=== PATIENT | male | born 1970 | race African-American/Black ===

== ENCOUNTER 2021-06-02 10:46 | Emergency (ER) | payer SELFPAY ==
[~2021-06-02] VITALS: Ht 175.3 cm; Wt 76.3 kg
[2021-06-02 10:46] VITALS: BP 151/99
[2021-06-02] MEDS ORDERED: IOHEXOL 300 MG/ML 75 ML VIAL. IV ONE (11:15)
[2021-06-02] MEDS ORDERED: CONTRAST GIVEN. MC PRN (11:15)
[2021-06-02] MEDS ORDERED: KETOROLAC 15 MG/ML VIAL. IVP ONE (11:15)
--- NOTE | 2021-06-02 12:30 | PHYS DOC ---
Past History Past Surgical History: No Surgical History (ERA MATUTE) Alcohol Use: Occasionally Social History Narrative: IV DRUG USE (ERA MATUTE) General Adult EDM: Chief Complaint: ABSCESS HPI: HPI: Patient is a 50 year old male who presents with a right-sided neck mass. Patient states it started as a small bump about a week ago, but is gotten bigger since onset. Patient states he was using ibuprofen for pain control, which was helping until last night. 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 Patient reports chills for the past 2 nights, but has not recorded in objective fever. There has been no discharge or bleeding from the mass. Patient denies joint pain, sore throat, ear pain. Patient has no other complaints at this time. (ERA MATUTE) Review of Systems: Review of Systems: Constitutional: See HPI Eyes: Denies change in visual acuity HENT: See HPI Respiratory: Denies cough or shortness of breath Cardiovascular: Denies chest pain or edema Musculoskeletal: Denies back pain or joint pain Integument: See HPI Neurologic: Denies headache, focal weakness or sensory changes (ERA MATUTE) Current Medications: Current Meds: Current Medications Medications (Trade) Dose Ordered Sig/Alberto Start Time Stop Time Status Last Admin Dose Admin Info (Do NOT chart on this entry -- for MONITORING) 1 each PRN DAILY PRN 06/02/21 11:15 06/04/21 11:14 Iohexol (Omnipaque 300 Mg/ml) 75 ml 1X ONCE 06/02/21 11:15 06/02/21 11:16 DC Ketorolac Tromethamine (Toradol 15mg Vial) 15 mg 1X ONCE 06/02/21 11:15 06/02/21 11:16 DC 06/02/21 12:25 15 MG (ERA MATUTE) Allergies: Allergies: Allergies Coded Allergies Type Severity Reaction Last Updated Verified No Known Drug Allergies 06/02/21 No (ERA MATUTE) Physical Exam: PE: Constitutional: Well developed, well nourished, no acute distress, non-toxic appearance. HENT: Normocephalic, atraumatic, bilateral external ears normal, oropharynx moist, no oral exudates, nose normal. Eyes: Conjunctiva normal, no discharge. Neck: 5 x 8 cm erythematous, firm mass noted on the right side inferior neck, range of motion to the right limited secondary to pain and swelling, no bony tenderness, no step-offs, no stridor. Cardiovascular: Heart rate regular rhythm, no murmur. Lungs & Thorax: Bilateral breath sounds clear to auscultation. Skin: Mass on neck as noted above, skin otherwise warm, dry, no erythema, no rash. Back: No tenderness, no CVA tenderness. Extremities: No tenderness, no cyanosis, no clubbing, ROM intact, no edema. Neurologic: Alert and oriented x3, normal motor function, normal sensory function, no focal deficits noted. (ERA MATUTE) Current Patient Data: Vital Signs: Vital Signs Date Time Temp Pulse Resp B/P (MAP) Pulse Ox O2 Delivery O2 Flow Rate FiO2 06/02/21 10:46 78 151/99 (116) 99 06/02/21 10:46 18 Room Air (ERA MATUTE) Radiology/Procedures: Radiology/Procedures: PROCEDURE: CT SOFT TISSUE NECK [facility] Compliance Statement: One or more of the following individualized dose reduction techniques were utilized for this examination: 1. Automated exposure control 2. Adjustment of the mA and/or kV according to patient size 3. Use of iterative reconstruction technique CT NECK SOFT TISSUE WITHOUT CONTRAST 06/02/2021 11:05 AM Indication: Right neck mass. COMPARISON: None available. TECHNIQUE: Multiple axial CT images of the neck were obtained without intravenous contrast. Coronal and sagittal reformats are provided. FINDINGS: No suspicious abnormality identified involving the visualized portions of the brain parenchyma and posterior fossa. The skull base is normal. The visualized paranasal sinuses are well aerated. Orbital contents appear normal. The sella turcica and cavernous sinus regions appear intact. The mastoid air cells are well aerated. The fossa of Rosenmuller is normal. Nasopharynx is normal in appearance. The parotid space contents and helmet coverer space contents appear intact. The parapharyngeal spaces are normal. The submandibular contents appear intact. Oral cavity, floor of mouth and sublingual space appear normal.. Oropharynx is normal in appearance. The epiglottis, aryepiglottic folds, and piriform sinuses are normal. The vallecula appears normal. The larynx and trachea are normal. The thyroid gland is normal in appearance. The carotid space contents are normal. In the right supraclavicular space there is a cystic mass measuring 4.8 x 4.1 cm. There is overlying skin thickening and subcutaneous edema. There are additional subcentimeter bilateral cervical lymph nodes measuring up to 8 mm in the right (series 2, image 32 and 5 mm in the left (series 2, image 34). The perivertebral space contents are normal. The supraclavicular regions appear intact. The visualized mediastinum is normal. The visualized lungs appear clear. Moderate cervical spondylosis. IMPRESSION: Right supraclavicular cystic mass measures 4.8 x 4.1 cm. There is adjacent inflammation. Differential considerations would include necrotic lymph node versus abscess. Evaluation limited without intravenous contrast. Further evaluation with targeted ultrasound could be of benefit. Correlate with any localized infection. Subcentimeter right level 2 cervical lymph node present. This is likely reactive. Electronically signed by: Kendra Chester MD (06/02/2021 12:57 PM) [id number] (ERA MATUTE) Heart Score: C/O Chest Pain: No (ERA MATUTE) Course & Med Decision Making: Course & Med Decision Making Pertinent Labs and Imaging studies reviewed. (See chart for details) Patient given IM ketorolac, as a line cannot be obtained. The soft tissue neck CT was originally ordered with IV contrast, however secondary to being unable to place IV line, scan was performed without. As the mass does not have a head or any palpable fluctuance, I do not believe I&D is appropriate at this time. I have asked Dr. Johnson to also examine the mass to assist in determining whether I&D is appropriate or not. On reevaluation after ketorolac IM, patient states his pain has decreased from 9/10 down to 6/10. Dr. Johnson did an ultrasound assisted exam of the mass. A well-circumscribed fluid collection is noted in the central mass. I&D will be performed and cultures will be obtained. Patient was given 1 g Rocephin in the department. Patient will be discharged home with prescriptions for tramadol, Zofran, and doxycycline. Patient should remove the packing tomorrow. If it is still draining at that point, patient will be instructed to replace the packing every 1 to 2 days until draining stops. (ERA MATUTE) Dragon Disclaimer: Dragon Disclaimer: This electronic medical record was generated, in whole or in part, using a voice recognition dictation system. (ERA MATUTE) Incision and Drainage Indication: Abscess with surrounding cellulitis Procedure: The patient was positioned appropriately and the skin over the incision site was cleansed with Betadine swabs. Local anesthesia was 4 mL 2% lidocaine plain. An incision was then made over the center of the mass on the right anterior cervical area and more than 6 cc material was expressed. Loculations were deep and superior to the incision site. The drainage cavity was then packed with packing gauze. The patients tetanus status was not up-to-date, he was given his tetanus vaccine in the department. The patient tolerated the procedure well, but did experience pain. Complications: Abscess was deep, so local anesthetic likely was not as efficient as it would be with a more superficial abscess. (ERA MATUTE) Attending Co-Sign The patient was seen and interviewed as well as examined at the bedside. The chart was reviewed. The case was discussed. Agree with the plan of care. (TAMARA JOHNSON DO) Departure Departure: Disposition: HOME / SELF CARE / HOMELESS Condition: STABLE Referrals: PCP,LE (PCP) Patient Instructions: Incision and Drainage, Care After Additional Instructions: Your abscess was incised and drained in the department today. We obtained a culture to ensure appropriate antibiotic treatment. The wound was packed with packing gauze. You should remove this in the shower tomorrow, and repack it if it is still draining. You should continue to replace the gauze every 1 to 2 days so long as the wound is draining. After that time, you may allow it to close and heal on its own. Please take the full course of antibiotics you are prescribed. You were also given tramadol for pain management, along with Zofran to treat side effect of nausea that you have experienced in the past. Please return to the emergency department if you develop a fever or the infection does not improve. Scripts Ondansetron (ONDANSETRON ODT) 4 Mg Tab.rapdis 1 TAB PO PRN Q6HRS for nausea for 3 Days, #12 TAB Let 1 tablet dissolve in your mouth every 6 hours as needed for nausea. Prov: ERA MATUTE 06/02/21 Tramadol Hcl (TRAMADOL HCL) 50 Mg Tablet 50 MG PO PRN Q6HRS PRN for PAIN for 3 Days, #12 TAB Take 1 tablet by mouth every 6 hours as needed for pain. Prov: ERA MATUTE 06/02/21 Doxycycline Hyclate (DOXYCYCLINE HYCLATE) 100 Mg Capsule 1 CAP PO BID for abscess for 10 Days, #20 CAP Take 1 capsule by mouth twice a day for 10 days. Please take full course of antibiotics unless otherwise instructed. Prov: ERA MATUTE 06/02/21 ERA MATUTE Jun 02, 2021 12:30 TAMARA JOHNSON DO Jun 03, 2021 06:16
--- NOTE | 2021-06-02 12:59 | RAD ---
[employer]RS Compliance Statement: One or more of the following individualized dose reduction techniques were utilized for this examinat ion: 1. Automated exposure control 2. Adjustment of the mA and/or kV according to patient size 3. Use of iterative reconstruction technique CT NECK SOFT TISSUE WITHOUT CONTRAST 06/02/2021 11:05 AM Indication: Right neck mass. COMPARISON: None available. TECHNIQUE: Multiple axial CT images of the neck were obtained without intravenous contrast. Coronal a nd sagittal reformats are provided. FINDINGS: No suspicious abnormality identified involving the visualized portions of the brain parenchyma and po sterior fossa. The skull base is normal. The visualized paranasal sinuses are well aerated. Orbital c ontents appear normal. The sella turcica and cavernous sinus regions appear intact. The mastoid air c ells are well aerated. The fossa of Rosenmuller is normal. Nasopharynx is normal in appearance. The parotid space contents a nd washery engineer space contents appear intact. The parapharyngeal spaces are normal. The submandibular contents appear intact. Oral cavity, floor of mouth and sublingual space appear normal.. Oropharynx is normal in appearance. The epiglottis, aryepiglottic folds, and piriform sinuses are nor mal. The vallecula appears normal. The larynx and trachea are normal. The thyroid gland is normal in appearance. The carotid space contents are normal. In the right supraclavicular space there is a cystic mass elda uring 4.8 x 4.1 cm. There is overlying skin thickening and subcutaneous edema. There are additional s ubcentimeter bilateral cervical lymph nodes measuring up to 8 mm in the right (series 2, image 32 and 5 mm in the left (series 2, image 34). The perivertebral space contents are normal. The supraclavicular regions appear intact. The visualiz ed mediastinum is normal. The visualized lungs appear clear. Moderate cervical spondylosis. IMPRESSION: Right supraclavicular cystic mass measures 4.8 x 4.1 cm. There is adjacent inflammation. Differential considerations would include necrotic lymph node versus abscess. Evaluation limited without intraven ous contrast. Further evaluation with targeted ultrasound could be of benefit. Correlate with any loc alized infection. Subcentimeter right level 2 cervical lymph node present. This is likely reactive. Electronically signed by: Kendra Chester MD (06/02/2021 12:57 PM) [id number]
[2021-06-02] MEDS ORDERED: traMADol 50 MG TABLET PO ONE (14:30)
[2021-06-02] MEDS ORDERED: LIDOCAINE 2% 20 ML VIAL. IJ ONE (14:30)
[2021-06-02] MEDS ORDERED: TRAM50TA PO (15:04)
[2021-06-02] MEDS ORDERED: ONDA4TAB12 PO (15:04)
[2021-06-02] MEDS ORDERED: DOXY100C3 PO (15:04)
[2021-06-02] MEDS ORDERED: cefTRIAXone IM 1 GM VIAL IM ONE (15:15)
[2021-06-02] MEDS ORDERED: LIDOCAINE 1% Multi-Dose 20 ML VIAL. ONE (15:23)
[2021-06-02] MEDS ORDERED: DIPH,PERTUSS(ACELL),TET VAC/PF 0.5 ML SYRINGE. VAX IM ONE (15:30)
[2021-06-02] MEDS ORDERED: LIDOCAINE 1% Multi-Dose 20 ML VIAL. IJ ONE (15:30)
== END 2021-06-02 15:43 | disposition home or self-care (01) ==
LOC: ER 10:46
DX: L02.11 Cutaneous abscess of neck (principal); L03.221 Cellulitis of neck
CPT/HCPCS: 10060; 70490; 90471; 90715; 96365; 96372; 99284; J0696; J1885; J2001